=== PATIENT | female | born 1960 | race Caucasian/White ===

== ENCOUNTER → 2018-03-03 11:26 | Outpatient (CLI) | payer SELFPAY ==
[2018-03-03 17:01] LABS: Progesterone Level 28.56 ng/mL (See Comment)
== END ==
PROVIDERS: Visit Provider Specialist
DX: N95.1 Menopausal and female climacteric states (principal)
CPT/HCPCS: 36415; 82670; 84144; 84403

== ENCOUNTER → 2018-06-19 11:55 | Outpatient (CLI) | payer SELFPAY ==
[2018-06-19 12:49] LABS: Estradiol 21.1 pg/mL
[2018-06-19 13:12] LABS: Progesterone Level 20.25 ng/mL (See Comment)
== END ==
PROVIDERS: Family Provider Family Medicine; PCP Family Medicine; Visit Provider Specialist
DX: N95.1 Menopausal and female climacteric states (principal)
CPT/HCPCS: 36415; 82670; 84144; 84403

== ENCOUNTER → 2018-09-13 13:09 | Outpatient (CLI) | payer SELFPAY ==
[2018-09-13 14:25] LABS: Progesterone Level 13.07 ng/mL (See Comment)
[2018-09-13 14:26] LABS: Estradiol 16.6 pg/mL
== END ==
PROVIDERS: Family Provider Family Medicine; PCP Family Medicine; Referring Provider Specialist; Visit Provider Specialist
DX: N95.1 Menopausal and female climacteric states (principal)
CPT/HCPCS: 36415; 82670; 84144; 84403

== ENCOUNTER → 2019-01-11 11:17 | Outpatient (CLI) | payer SELFPAY ==
[2019-01-11 12:17] LABS: Estradiol 23.9 pg/mL
== END ==
PROVIDERS: Family Provider Family Medicine; PCP Family Medicine; Referring Provider Specialist; Visit Provider Specialist
DX: N95.1 Menopausal and female climacteric states (principal)
CPT/HCPCS: 36415; 82670; 84144; 84403

== ENCOUNTER → 2019-06-08 | Outpatient (CLI) | payer SELFPAY ==
[2019-06-08 13:41] LABS: Estradiol 25.4 pg/mL
[2019-06-08 13:51] LABS: Progesterone Level 22.49 ng/mL (See Comment)
== END | disposition home or self-care (01) ==
LOC: LAB 12:27
PROVIDERS: Family Provider Family Medicine; PCP Family Medicine; Referring Provider Specialist; Visit Provider Specialist
DX: N95.1 Menopausal and female climacteric states (principal)
CPT/HCPCS: 36415; 82670; 84144; 84403

== ENCOUNTER → 2019-07-11 | Outpatient (CLI) | payer SELFPAY ==
--- NOTE | 2019-07-11 11:01 | RAD_ITS ---
STUDY: X-RAY - PELVIS AND LEFT HIP REASON FOR EXAM: Female, 59 years old. Pain TECHNIQUE: 3 views of the pelvis and hip. COMPARISON: None. FINDINGS: There is a non-specific bowel gas pattern. Normal visualized soft tissue structures. Normal bilateral iliac wings, sacroiliac joints and visualized sacrum. Normal bilateral superior and inferior pubic rami. Normal pubic symphysis. Normal bilateral ischial tuberosities. Normal visualized femoral head. Normal acetabulum. Normal hip joint. RAD/HIP, UNI W/ Pelvis 2-3 Views IMPRESSION: Normal x-ray examination of the pelvis and hip. Electronically Signed: Hayes Thomas MD at 18:06 EDT , Service support ,
--- NOTE | 2019-07-11 11:10 | RAD_ITS ---
STUDY: X-RAY - LUMBAR SPINE REASON FOR EXAM: Female, 59 years old. Low back pain TECHNIQUE: 5 view(s) of the lumbar spine were obtained. COMPARISON: None FINDINGS: Normal lumbar lordosis. There is no substantial scoliosis. There is a normal alignment of the vertebrae. Normal vertebral bodies and endplates. Moderate to severe degenerative disc disease at L5-S1, otherwise normal disc space heights. There is no demonstrated fracture. The soft tissue structures are unremarkable. RAD/L/S Spine Min 4 Views IMPRESSION: No acute abnormality. Moderate to severe degenerative disc disease localized to L5-S1. Electronically Signed: Hayes Thomas MD at 17:39 EDT , Service support ,
== END | disposition home or self-care (01) ==
LOC: RAD 10:49
PROVIDERS: Family Provider Family Medicine; PCP Family Medicine
DX: M54.5 Low back pain (principal); M25.552 Pain in left hip
CPT/HCPCS: 72110; 73502

== ENCOUNTER → 2020-09-09 | Outpatient (CLI) | payer SELFPAY ==
[2020-09-09 10:52] LABS: Estradiol 17.5 pg/mL
[2020-09-09 13:08] LABS: Progesterone Level 23.33 ng/mL (See Comment)
== END | disposition home or self-care (01) ==
PROVIDERS: PCP Family Medicine; Referring Provider Specialist; Visit Provider Specialist
DX: N95.1 Menopausal and female climacteric states (principal)
CPT/HCPCS: 36415; 82670; 84144; 84403

== ENCOUNTER → 2021-02-04 10:35 | Outpatient (CLI) | payer SELFPAY ==
[2021-02-04 11:30] LABS: Progesterone Level 54.64 ng/mL (See Comment)
[2021-02-04 11:46] LABS: Estradiol 33.6 pg/mL
== END ==
PROVIDERS: PCP Family Medicine; Referring Provider Specialist; Visit Provider Specialist
DX: E03.9 Hypothyroidism, unspecified (principal); E27.9 Disorder of adrenal gland, unspecified; N95.1 Menopausal and female climacteric states
CPT/HCPCS: 36415; 82670; 84144; 84403